=== PATIENT | female | born 1970 | race African-American/Black ===

== ENCOUNTER 2019-06-23 12:30 | Inpatient (IN) | payer OTHER ==
[2019-06-23 13:37] VITALS: BMI 27.1
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
--- NOTE | 2019-06-23 14:34 | PN ---
"Teaching Attending Note Name of Resident: Iva Hess ATTENDING PHYSICIAN STATEMENT I saw and evaluated the patient. I reviewed the resident's note and discussed the case with the resident. I agree with the resident's findings and plan as documented. SUBJECTIVE:pt here requesting detox from heroin use , claims 10 bags /day via inhalation, denies IV use , latest use this morning . Claims she bought illicit Methadone 1 week ago 80 mg . tobacco : 1/2 PPD since age 16 PMH: none Psych: none PSH: C-sx x 4 , R THR OBJECTIVE: wnwd Search Terms: sheila newton, 1970 Search Date: 06/23/2019 02:30:24 PM The Drug Utilization Report below displays all of the controlled substance prescriptions, if any, that your patient has filled in the last twelve months. The information displayed on this report is compiled from pharmacy submissions to the Department, and accurately reflects the information as submitted by the pharmacies. This report was requested by: Brandi Garces | Reference #: [id number] There are no results for the search terms that you entered. Vital Signs - 24 hr 06/23/19 13:28 Temperature 97.7 F Pulse Rate 71 Respiratory 20 Rate Blood Pressure 119/73 ASSESSMENT AND PLAN: OPIOID USE DISORDER (DENIES MMTP participation, denies recent detox ) : Methadone detox"
[2019-06-23] MEDS ORDERED: MAG HYDROX/AL HYDROX/SIMETH 30 ML UNIT-DOSE CUP PO PRN (15:30)
[2019-06-23] MEDS ORDERED: MAGNESIUM CITRATE 300 ML BOTTLE PO PRN (15:30)
[2019-06-23] MEDS ORDERED: MAGNESIUM HYDROX 2400MG/30ML ORAL SUSPENSION 30 ML CUP PO PRN (15:30)
[2019-06-23] MEDS ORDERED: IBUPROFEN 400 MG TABLET (FP) PO PRN (15:30)
[2019-06-23] MEDS ORDERED: MENTHOL/PHENOL 1 EACH UD MM PRN (15:30)
[2019-06-23] MEDS ORDERED: BISMUTH SUBSALICYLATE 524 MG/30 ML UD PO PRN (15:30)
[2019-06-23] MEDS ORDERED: ACETAMINOPHEN 325 MG TABLET (FP) PO PRN ×2 (15:30)
[2019-06-23] MEDS ORDERED: METHADONE HCL 10 MG TABLET (FOR DETOX USE ONLY) PO ONE (17:00)
[2019-06-23] MEDS: THIAMINE HCL 100 MG TABLET (FP) PO SCH ×2 (22:01→22:29)
[2019-06-23] MEDS: MELATONIN 5 MG TABLETS PO PRN (22:02)
[2019-06-23] MEDS: METHOCARBAMOL 500 MG TABLET PO PRN (22:28)
[2019-06-24] MEDS ORDERED: METHADONE HCL 10 MG TABLET (FOR DETOX USE ONLY) ONE (09:39)
[2019-06-24] MEDS ORDERED: METHADONE HCL 5 MG TABLET (FOR DETOX USE ONLY) ONE (09:39)
[2019-06-24] MEDS ORDERED: METHADONE (DETOX) 20 MG, METHADONE (DETOX) 5 MG PO ONE (10:00)
[2019-06-24] MEDS: PRENATAL VITAMINS W/ FOLIC ACID TABLET (FP) PO SCH (10:15)
[2019-06-24 10:34] LABS: HEMATOCRIT 31.4 % (32.4-45.2); HEMOGLOBIN 10.2 GM/dL (10.7-15.3); MCH 30.3 pg (25.7-33.7); MCHC 32.3 g/dl (32.0-36.0); MEAN CELL VOLUME 93.8 fl (80-96); MEAN PLT VOLUME 8.3 fl (7.5-11.1); PLATELET COUNT 207 K/MM3 (134-434); RBC 3.35 M/mm3 (3.60-5.2); RDW 14.6 % (11.6-15.6); WHITE BLOOD COUNT 2.8 K/mm3 (4.0-10.0)
[2019-06-24 10:57] LABS: BILIRUBIN,TOTAL 0.4 mg/dL (0.2-1); BLOOD UREA NITROGEN 12.4 mg/dL (7-18); CALCIUM 8.7 mg/dL (8.5-10.1); CREATININE 0.7 mg/dL (0.55-1.3); POTASSIUM 4.2 mmol/L (3.5-5.1); TOT PROT 5.9 g/dl (6.4-8.2)
[2019-06-24] MEDS: hydrOXYzine PAMOATE 25 MG CAPSULE (FP) PO PRN ×2 (12:43→19:09)
--- NOTE | 2019-06-24 12:57 | PN ---
S COWS - Scale Resting Pulse: 0= [place] 80 or Below Sweatin= Beads of Sweat on Face Restless Observation: 1= Difficult to Sit Still Pupil Size: 0= Normal to Room Light Bone or Joint Aches: 2= Severe Diffuse Aches Runny Nose/ Eye Tearin= None GI Upset > 30mins: 0= None Tremor Observation of Outstretched Hands: 0= None Yawning Observation: 1= 1-2x During Session Anxiety or Irritability: 2=Irritable/Anxious Goose Flesh Skin: 0=Smooth Skin COWS Score: 9 S Progress Note (SOAP) Subjective: c/o muscle aches, anxiety, and sweats. Objective: 06/24/19 12:54 Vital Signs 06/24/19 06/24/19 06:17 09:21 Temperature 97.4 F L 98.2 F Pulse Rate 54 L 56 L Respiratory 18 18 Rate Blood Pressure 102/67 116/76 Laboratory Last Values WBC 2.8 K/mm3 (4.0-10.0) L 06/24/19 08:10 RBC 3.35 M/mm3 (3.60-5.2) L 06/24/19 08:10 Hgb 10.2 GM/dL (10.7-15.3) L 06/24/19 08:10 Hct 31.4 % (32.4-45.2) L 06/24/19 08:10 MCV 93.8 fl (80-96) 06/24/19 08:10 MCH 30.3 pg (25.7-33.7) 06/24/19 08:10 MCHC 32.3 g/dl (32.0-36.0) 06/24/19 08:10 RDW 14.6 % (11.6-15.6) 06/24/19 08:10 Plt Count 207 K/MM3 (134-434) 06/24/19 08:10 MPV 8.3 fl (7.5-11.1) 06/24/19 08:10 Sodium 141 mmol/L (136-145) 06/24/19 08:10 Potassium 4.2 mmol/L (3.5-5.1) 06/24/19 08:10 Chloride 107 mmol/L (98-107) 06/24/19 08:10 Carbon Dioxide 29 mmol/L (21-32) 06/24/19 08:10 Anion Gap 6 MMOL/L (8-16) L 06/24/19 08:10 BUN 12.4 mg/dL (7-18) 06/24/19 08:10 Creatinine 0.7 mg/dL (0.55-1.3) 06/24/19 08:10 Est GFR (CKD-EPI)AfAm 117.91 06/24/19 08:10 Est GFR (CKD-EPI)NonAf 101.74 06/24/19 08:10 Random Glucose 84 mg/dL (74-106) 06/24/19 08:10 Calcium 8.7 mg/dL (8.5-10.1) 06/24/19 08:10 Total Bilirubin 0.4 mg/dL (0.2-1) 06/24/19 08:10 AST 20 U/L (15-37) 06/24/19 08:10 ALT 29 U/L (13-61) 06/24/19 08:10 Alkaline Phosphatase 53 U/L (45-117) 06/24/19 08:10 Total Protein 5.9 g/dl (6.4-8.2) L 06/24/19 08:10 Albumin 3.0 g/dl (3.4-5.0) L 06/24/19 08:10 Labs noted with Low wbc, RBC, Hgb, and Hct. Assessment: 06/24/19 12:55 AOX3, in no acute respiratory distress. Full ROM, ambulating in the unit. Withdrawal symptoms. Leukopenia Plan: continue detox. Repeat cbc in AM.
[2019-06-24] MEDS: cloNIDine HCL 0.1 MG TABLET PO PRN (15:15)
[2019-06-24] MEDS: THIAMINE HCL 100 MG TABLET (FP) PO SCH (22:22)
[2019-06-24] MEDS: MELATONIN 5 MG TABLETS PO PRN (22:22)
[2019-06-24] MEDS: METHOCARBAMOL 500 MG TABLET PO PRN (22:22)
[2019-06-25] MEDS: hydrOXYzine PAMOATE 25 MG CAPSULE (FP) PO PRN ×2 (06:13→15:37)
[2019-06-25] MEDS: PRENATAL VITAMINS W/ FOLIC ACID TABLET (FP) PO SCH (09:53)
[2019-06-25] MEDS ORDERED: METHADONE HCL 10 MG TABLET (FOR DETOX USE ONLY) PO ONE (10:00)
[2019-06-25 11:06] LABS: HEMATOCRIT 31.4 % (32.4-45.2); HEMOGLOBIN 10.4 GM/dL (10.7-15.3); MEAN PLT VOLUME 8.7 fl (7.5-11.1); PLATELET COUNT 205 K/MM3 (134-434); RBC 3.34 M/mm3 (3.60-5.2); RDW 14.6 % (11.6-15.6); WHITE BLOOD COUNT 3.2 K/mm3 (4.0-10.0)
[2019-06-25] MEDS: cloNIDine HCL 0.1 MG TABLET PO PRN (12:21)
--- NOTE | 2019-06-25 12:30 | PN ---
BHS COWS - Scale Resting Pulse: 1= [place] 81-100 Sweatin= Chills/Flushing Restless Observation: 0= Sits Still Pupil Size: 1= Pupils >than Normal Bone or Joint Aches: 1= Mild Discomfort Runny Nose/ Eye Tearin= Nasal Congestion GI Upset > 30mins: 1= Stomach Cramp Tremor Observation of Outstretched Hands: 1= Tremor [place], Not Seen Yawning Observation: 0= None Anxiety or Irritability: 1=Feels Anxious/Irritable Goose Flesh Skin: 0=Smooth Skin COWS Score: 8 BHS Progress Note (SOAP) Subjective: 49 years old male admitted on 06/23/19 for opiate withdrawal sx management treating with methadone detox regimen patient had wbc 2.8 upon admission repeat wbc 3.2 patient requests reason for low wbc had hiv test "a month ago" negative patient requests hiv and heptatitis c testing and urine test patient reports that she is worry and anxious about low wbc encourage to recovery from opiate addiction and healthy lifestyle and follow up with primary care provider for wbc monitoring Objective: 06/25/19 12:30 Vital Signs Temperature 99.2 F 06/25/19 09:22 Pulse Rate 81 06/25/19 09:22 Respiratory Rate 18 06/25/19 09:22 Blood Pressure 114/72 06/25/19 09:22 O2 Sat by Pulse Oximetry (%) Laboratory Last Values WBC 3.2 K/mm3 (4.0-10.0) L 06/25/19 08:00 RBC 3.34 M/mm3 (3.60-5.2) L 06/25/19 08:00 Hgb 10.4 GM/dL (10.7-15.3) L 06/25/19 08:00 Hct 31.4 % (32.4-45.2) L 06/25/19 08:00 MCV 94.0 fl (80-96) 06/25/19 08:00 MCH 31.0 pg (25.7-33.7) 06/25/19 08:00 MCHC 33.0 g/dl (32.0-36.0) 06/25/19 08:00 RDW 14.6 % (11.6-15.6) 06/25/19 08:00 Plt Count 205 K/MM3 (134-434) 06/25/19 08:00 MPV 8.7 fl (7.5-11.1) 06/25/19 08:00 Sodium 141 mmol/L (136-145) 06/24/19 08:10 Potassium 4.2 mmol/L (3.5-5.1) 06/24/19 08:10 Chloride 107 mmol/L (98-107) 06/24/19 08:10 Carbon Dioxide 29 mmol/L (21-32) 06/24/19 08:10 Anion Gap 6 MMOL/L (8-16) L 06/24/19 08:10 BUN 12.4 mg/dL (7-18) 06/24/19 08:10 Creatinine 0.7 mg/dL (0.55-1.3) 06/24/19 08:10 Est GFR (CKD-EPI)AfAm 117.91 06/24/19 08:10 Est GFR (CKD-EPI)NonAf 101.74 06/24/19 08:10 Random Glucose 84 mg/dL (74-106) 06/24/19 08:10 Calcium 8.7 mg/dL (8.5-10.1) 06/24/19 08:10 Total Bilirubin 0.4 mg/dL (0.2-1) 06/24/19 08:10 AST 20 U/L (15-37) 06/24/19 08:10 ALT 29 U/L (13-61) 06/24/19 08:10 Alkaline Phosphatase 53 U/L (45-117) 06/24/19 08:10 Total Protein 5.9 g/dl (6.4-8.2) L 06/24/19 08:10 Albumin 3.0 g/dl (3.4-5.0) L 06/24/19 08:10 RPR Titer Nonreactive (NONREACTIVE) 06/24/19 08:10 lab noted Assessment: 06/25/19 12:30 opiate withdrawal Plan: methadone regimen
[2019-06-25] MEDS ORDERED: ONDANSETRON *ODT* 4 MG TABLET SL ONE (15:35)
[2019-06-25] MEDS: THIAMINE HCL 100 MG TABLET (FP) PO SCH (22:16)
[2019-06-25] MEDS: MINERAL OIL/PETROLAT/WATER TOPICAL CREAM 113 GM JAR TP SCH (22:16)
[2019-06-25] MEDS: MELATONIN 5 MG TABLETS PO PRN (22:16)
[2019-06-26] MEDS: hydrOXYzine PAMOATE 25 MG CAPSULE (FP) PO PRN ×2 (07:25→17:45)
[2019-06-26] MEDS ORDERED: METHADONE HCL 10 MG TABLET (FOR DETOX USE ONLY) ONE (09:46)
[2019-06-26] MEDS ORDERED: METHADONE HCL 5 MG TABLET (FOR DETOX USE ONLY) ONE (09:47)
[2019-06-26] MEDS ORDERED: METHADONE (DETOX) 10 MG, METHADONE (DETOX) 5 MG PO ONE (10:00)
[2019-06-26] MEDS: PRENATAL VITAMINS W/ FOLIC ACID TABLET (FP) PO SCH (10:54)
[2019-06-26] MEDS: MINERAL OIL/PETROLAT/WATER TOPICAL CREAM 113 GM JAR TP SCH ×2 (10:56→22:08)
[2019-06-26 11:13] LABS: URINE APPEARANCE CLEAR; URINE BILIRUBIN NEGATIVE (NEGATIVE); URINE COLOR YELLOW; URINE GLUCOSE (UA) NEGATIVE (NEGATIVE); URINE KETONE NEGATIVE (NEGATIVE); URINE LEUK ESTERASE NEGATIVE (NEGATIVE); URINE NITRITE NEGATIVE (NEGATIVE); URINE PROTEIN NEGATIVE (NEGATIVE); URINE UROBILINOGEN 0.2 mg/dL (0.2-1.0)
--- NOTE | 2019-06-26 11:54 | PN ---
BHS COWS - Scale Resting Pulse: 0= [place] 80 or Below Sweatin= Chills/Flushing Restless Observation: 0= Sits Still Pupil Size: 0= Normal to Room Light Bone or Joint Aches: 1= Mild Discomfort Runny Nose/ Eye Tearin= None GI Upset > 30mins: 0= None Tremor Observation of Outstretched Hands: 1= Tremor [place], Not Seen Yawning Observation: 0= None Anxiety or Irritability: 1=Feels Anxious/Irritable Goose Flesh Skin: 0=Smooth Skin COWS Score: 4 BHS Progress Note (SOAP) Subjective: 49 years old female admitted on 06/23/19 for opiate withdrawal sx management treating with methadone detox regimen blood collected for hiv hep c and urine for analysis ambulating on hallway social with peers in day room [facility] medication assisted treatment program and bulk picker narcan from pharmacy Objective: 06/26/19 11:58 Vital Signs Temperature 97.7 F 06/26/19 09:23 Pulse Rate 67 06/26/19 09:23 Respiratory Rate 18 06/26/19 09:23 Blood Pressure 100/63 06/26/19 09:23 O2 Sat by Pulse Oximetry (%) Laboratory Last Values WBC 3.2 K/mm3 (4.0-10.0) L 06/25/19 08:00 RBC 3.34 M/mm3 (3.60-5.2) L 06/25/19 08:00 Hgb 10.4 GM/dL (10.7-15.3) L 06/25/19 08:00 Hct 31.4 % (32.4-45.2) L 06/25/19 08:00 MCV 94.0 fl (80-96) 06/25/19 08:00 MCH 31.0 pg (25.7-33.7) 06/25/19 08:00 MCHC 33.0 g/dl (32.0-36.0) 06/25/19 08:00 RDW 14.6 % (11.6-15.6) 06/25/19 08:00 Plt Count 205 K/MM3 (134-434) 06/25/19 08:00 MPV 8.7 fl (7.5-11.1) 06/25/19 08:00 Sodium 141 mmol/L (136-145) 06/24/19 08:10 Potassium 4.2 mmol/L (3.5-5.1) 06/24/19 08:10 Chloride 107 mmol/L (98-107) 06/24/19 08:10 Carbon Dioxide 29 mmol/L (21-32) 06/24/19 08:10 Anion Gap 6 MMOL/L (8-16) L 06/24/19 08:10 BUN 12.4 mg/dL (7-18) 06/24/19 08:10 Creatinine 0.7 mg/dL (0.55-1.3) 06/24/19 08:10 Est GFR (CKD-EPI)AfAm 117.91 06/24/19 08:10 Est GFR (CKD-EPI)NonAf 101.74 06/24/19 08:10 Random Glucose 84 mg/dL (74-106) 06/24/19 08:10 Calcium 8.7 mg/dL (8.5-10.1) 06/24/19 08:10 Total Bilirubin 0.4 mg/dL (0.2-1) 06/24/19 08:10 AST 20 U/L (15-37) 06/24/19 08:10 ALT 29 U/L (13-61) 06/24/19 08:10 Alkaline Phosphatase 53 U/L (45-117) 06/24/19 08:10 Total Protein 5.9 g/dl (6.4-8.2) L 06/24/19 08:10 Albumin 3.0 g/dl (3.4-5.0) L 06/24/19 08:10 Urine Color Yellow 06/26/19 08:15 Urine Appearance Clear 06/26/19 08:15 Urine pH 6.0 (5.0-8.0) 06/26/19 08:15 Ur Specific [place] 1.014 (1.010-1.035) 06/26/19 08:15 Urine Protein Negative (NEGATIVE) 06/26/19 08:15 Urine Glucose (UA) Negative (NEGATIVE) 06/26/19 08:15 Urine Ketones Negative (NEGATIVE) 06/26/19 08:15 Urine Blood Negative (NEGATIVE) 06/26/19 08:15 Urine Nitrite Negative (NEGATIVE) 06/26/19 08:15 Urine Bilirubin Negative (NEGATIVE) 06/26/19 08:15 Urine Urobilinogen 0.2 mg/dL (0.2-1.0) 06/26/19 08:15 Ur Leukocyte Esterase Negative (NEGATIVE) 06/26/19 08:15 POC Urine HCG, Qual Negative 06/23/19 13:55 RPR Titer Nonreactive (NONREACTIVE) 06/24/19 08:10 lab noted Assessment: 06/26/19 11:59 opiate withdrawal Plan: methadone regimen
[2019-06-26] MEDS: MELATONIN 5 MG TABLETS PO PRN (22:08)
[2019-06-26] MEDS: THIAMINE HCL 100 MG TABLET (FP) PO SCH (22:08)
[2019-06-27 06:10] VITALS: BP 111/67; PULSE 52; TEMP 97.1
[2019-06-27] MEDS ORDERED: METHADONE HCL 10 MG TABLET (FOR DETOX USE ONLY) PO ONE (10:00)
[2019-06-28] MEDS ORDERED: METHADONE HCL 5 MG TABLET (FOR DETOX USE ONLY) PO ONE (06:00)
--- NOTE | 2019-06-28 15:49 | DS ---
[facility] Detox Discharge Summary Admission Date: 06/23/19 Discharge Date: 06/27/19 - History Present History: Opioid Dependence Additional Comments: 49 years old female admitted on 06/23/19 for opiate withdrawal sx management treated [facility] methadone detox regimen patient preferred to be discharged one day early patient left the detox unit around 7 am today instructional writer has not assessed nor evaluated the patient - Physical Exam Results Vital Signs: Vital Signs Temperature 97.1 F L 06/27/19 06:09 Pulse Rate 52 L 06/27/19 06:09 Respiratory Rate 16 06/27/19 06:09 Blood Pressure 111/67 06/27/19 06:09 O2 Sat by Pulse Oximetry (%) Pertinent Admission Physical Exam Findings: opiate withdrawal Laboratory Last Values WBC 3.2 K/mm3 (4.0-10.0) L 06/25/19 08:00 RBC 3.34 M/mm3 (3.60-5.2) L 06/25/19 08:00 Hgb 10.4 GM/dL (10.7-15.3) L 06/25/19 08:00 Hct 31.4 % (32.4-45.2) L 06/25/19 08:00 MCV 94.0 fl (80-96) 06/25/19 08:00 MCH 31.0 pg (25.7-33.7) 06/25/19 08:00 MCHC 33.0 g/dl (32.0-36.0) 06/25/19 08:00 RDW 14.6 % (11.6-15.6) 06/25/19 08:00 Plt Count 205 K/MM3 (134-434) 06/25/19 08:00 MPV 8.7 fl (7.5-11.1) 06/25/19 08:00 Sodium 141 mmol/L (136-145) 06/24/19 08:10 Potassium 4.2 mmol/L (3.5-5.1) 06/24/19 08:10 Chloride 107 mmol/L (98-107) 06/24/19 08:10 Carbon Dioxide 29 mmol/L (21-32) 06/24/19 08:10 Anion Gap 6 MMOL/L (8-16) L 06/24/19 08:10 BUN 12.4 mg/dL (7-18) 06/24/19 08:10 Creatinine 0.7 mg/dL (0.55-1.3) 06/24/19 08:10 Est GFR (CKD-EPI)AfAm 117.91 06/24/19 08:10 Est GFR (CKD-EPI)NonAf 101.74 06/24/19 08:10 Random Glucose 84 mg/dL (74-106) 06/24/19 08:10 Calcium 8.7 mg/dL (8.5-10.1) 06/24/19 08:10 Total Bilirubin 0.4 mg/dL (0.2-1) 06/24/19 08:10 AST 20 U/L (15-37) 06/24/19 08:10 ALT 29 U/L (13-61) 06/24/19 08:10 Alkaline Phosphatase 53 U/L (45-117) 06/24/19 08:10 Total Protein 5.9 g/dl (6.4-8.2) L 06/24/19 08:10 Albumin 3.0 g/dl (3.4-5.0) L 06/24/19 08:10 Urine Color Yellow 06/26/19 08:15 Urine Appearance Clear 06/26/19 08:15 Urine pH 6.0 (5.0-8.0) 06/26/19 08:15 Ur Specific [place] 1.014 (1.010-1.035) 06/26/19 08:15 Urine Protein Negative (NEGATIVE) 06/26/19 08:15 Urine Glucose (UA) Negative (NEGATIVE) 06/26/19 08:15 Urine Ketones Negative (NEGATIVE) 06/26/19 08:15 Urine Blood Negative (NEGATIVE) 06/26/19 08:15 Urine Nitrite Negative (NEGATIVE) 06/26/19 08:15 Urine Bilirubin Negative (NEGATIVE) 06/26/19 08:15 Urine Urobilinogen 0.2 mg/dL (0.2-1.0) 06/26/19 08:15 Ur Leukocyte Esterase Negative (NEGATIVE) 06/26/19 08:15 POC Urine HCG, Qual Negative 06/23/19 13:55 RPR Titer Nonreactive (NONREACTIVE) 06/24/19 08:10 Hep C Ab Diagnostic <0.1 s/co ratio (0.0-0.9) 06/26/19 08:15 HIV 1&2 Antibody Screen Negative 06/26/19 08:15 HIV P24 Antigen Negative 06/26/19 08:15 lab noted - Treatment Hospital Course: Detox Protocol Followed, Detoxed Safely, Responded well, Discharged Condition Good, Rehab Referral Accepted Patient has Accepted a Rehab Referral to: [facility] - Medication Discharge Medications: Ambulatory Orders Naloxone HCl [Narcan] 4 mg NS ASDIR PRN #1 spray 06/26/19 - Diagnosis (1) Opioid abuse, uncomplicated Status: Acute - AMA Did Patient Leave Against Medical Advice: No
== END 2019-06-27 07:17 | disposition home or self-care (01) | DRG 773 ==
LOC: YASAS 12:30 → Y3N 16:26
PROVIDERS: ADMIT Allergy & Immunology; ATTEND Allergy & Immunology
PROC: HZ2ZZZZ Detoxification Services for Substance Abuse Treatment (ICD-10-PCS; principal; 2019-06-23)
DX: F11.23 Opioid dependence with withdrawal (principal); F14.20 Cocaine dependence, uncomplicated; F17.210 Nicotine dependence, cigarettes, uncomplicated; D72.819 Decreased white blood cell count, unspecified; Z96.641 Presence of right artificial hip joint; Z91.040 Latex allergy status; Z91.018 Allergy to other foods; Z59.0 Homelessness
CPT/HCPCS: 36415; 80053; 81003; 81025; 85027; 86593; 86803; 87389; J0735; Q0162